=== PATIENT | female | born 1975 | race Caucasian/White ===

== ENCOUNTER 2017-01-06 08:16 | Emergency (ER) | payer MEDICAID ==
[~2017-01-06] VITALS: Ht 160 cm; Wt 71.0 kg
[~2017-01-06 08:16] MED LIST: ALPR1TAB3 PO; BACT800T5 PO; PERC5TAB12 PO; Z.0.BCPILL PO
[2017-01-06 08:19] VITALS: BP 109/62; PULSE 75; RESP 16; TEMP 98.1; O2SAT 99
[2017-01-06] MEDS ORDERED: REQU5TAB PO (08:34)
[2017-01-06] MEDS ORDERED: OMEP40CA2 PO (08:34)
[2017-01-06] MEDS ORDERED: ALPR1TAB3 PO (08:34)
--- NOTE | 2017-01-06 08:57 | PD ---
HPI Chief Complaint: ENT Complaint Time Seen by Provider: 08:50 Travel History International Travel<30 days: No Contact w/Intl Traveler<30days: No Traveled to known affect area: No History of Present Illness HPI This is a 41 year old female who presents to the emergency department with swollen throat for one day, constant, moderate severity, feeling like it is hard to swallow with no associated shortness of breath. She denies any pain. Pt. reports she used an e-cigarette last night which is the only new exposure she can think of. She quit smoking one week ago. Pt. denies cough, nausea, vomiting, or fever. PFSH Past Medical History Narrative Medical anxiety gerd restless legs Anxiety: Yes Diminished Hearing: No Immunizations Current: No ?: Not LMP: 1 WEEK AGO : 7 Para: 4 Miscarriage: 2 : 1 Ovarian Cysts: Yes Dilation and Curettage (D&C): Yes Past Surgical History Section: No Social History Alcohol Use: No Tobacco Use: Yes (stopped month ago) Substance Use: No Allergies-Medications (Allergen,Severity, Reaction): Coded Allergies: No Known Allergies (Verified Adverse Reaction, Unknown, 01/06/17) Reported Meds & Prescriptions Reported Meds & Active Scripts Active Reported Requip (Ropinirole) 5 Mg Tab 5 Mg PO HS Omeprazole 40 Mg Cap 40 Mg PO DAILY Alprazolam 1 Mg Tab 1 Mg PO TID PRN Review of Systems Except as stated in HPI: all other systems reviewed are Neg Physical Exam Narrative GENERAL:Well appearing, no acute distress SKIN: Focused skin assessment warm and dry. HEAD: Atraumatic. Normocephalic. EYES: Pupils equal and round. No injection or drainage. ENT: Moist mucous membranes NECK: Trachea midline. CARDIOVASCULAR: Regular rate and rhythm. No murmur appreciated. RESPIRATORY: Clear to auscultation. Breath sounds equal bilaterally. GASTROINTESTINAL: Abdomen soft, non-tender, nondistended. MUSCULOSKELETAL: No obvious deformities. NEUROLOGICAL: Awake and alert. No obvious cranial nerve deficits. Moving all extremities. PSYCHIATRIC: Appropriate mood and affect; insight and judgment normal. Data Data Last Documented VS Vital Signs Date Time Temp Pulse Resp B/P (MAP) Pulse Ox O2 Delivery O2 Flow Rate FiO2 01/06/17 11:03 64 18 81/56 (64) 100 Room Air 01/06/17 08:19 98.1 Orders Orders Ecg Monitoring (01/06/17 09:10) Iv Access Insert/Monitor (01/06/17 09:10) Oximetry (01/06/17 09:10) Diphenhydramine Inj (Benadryl Inj) (01/06/17 09:15) Methylprednisolone So Succ Inj (Solumedr (01/06/17 09:15) Famotidine Inj (Pepcid Inj) (01/06/17 09:15) Sodium Chloride 0.9% Flush (Ns Flush) (01/06/17 09:15) Sodium Chlor 0.9% 1000 Ml Inj (Ns 1000 M (01/06/17 09:15) MDM Medical Decision Making Medical Screen Exam Complete: Yes Emergency Medical Condition: Yes Interpretation(s) Afebrile, no tachycardia, normotensive Differential Diagnosis Acute allergic reaction, anaphylaxis, angioedema, strep pharyngitis, viral pharyngitis Narrative Course This is a 41-year-old female who presents to the emergency department with swelling in her posterior pharynx following using any cigarette last evening. She has edema of the uvula and the posterior pharynx is erythematous. I suspect she's having allergic reaction. She was given Benadryl, steroids and IV fluids and she says she feels much better. She has no other symptoms to suggest anaphylaxis. Patient will be discharged home with prednisone and Benadryl. Diagnosis Primary Impression: Acute allergic reaction Qualified Codes: T78.40XA - Allergy, unspecified, initial encounter Additional Instructions: If you develop swelling of the throat or coughing a lot, wheezing or trouble breathing, throwing up or having diarrhea, feeling dizzy or passing out, or spreading of your rash return to the emergency room immediately as you may be having a life threatening allergic reaction. Complete your course of steroids and take benadryl every 4 hours for the next 48 hours and then as needed for itching or other symptoms. Med/Other Pt SpecificInfo: Prescription(s) given Scripts Diphenhydramine (Diphenhydramine) 25 Mg Cap 25 MG PO Q6H Y for ALLERGIES, #14 CAP 0 Refills Prov: Trupti Tenorio MD 01/06/17 Prednisone (Prednisone) 20 Mg Tab 40 MG PO DAILY, #10 TAB 0 Refills Take 40 mg (2 tablets) daily for 5 days Prov: Trupti Tenorio MD 01/06/17 Disposition: 01 DISCHARGE HOME Condition: Stable Trupti Tenorio MD Jan 06, 2017 08:57
[2017-01-06] MEDS ORDERED: FAMOTIDINE 20 MG/2 ML VIAL IV PUSH ONE (09:15)
[2017-01-06] MEDS ORDERED: diphenhydrAMINE HCL 50 MG/ML VIAL IVP ONE (09:15)
[2017-01-06] MEDS ORDERED: SODIUM CHLOR 0.9% 1000 ML INJ 1,000 ML IV ONE (09:15)
[2017-01-06] MEDS ORDERED: methylPREDNISolone SOD SUCC 125 MG/2 ML VIAL IV PUSH ONE (09:15)
[2017-01-06] MEDS ORDERED: SODIUM CHLORIDE 0.9% FLUSH 10 ML FLUSH IV FLUSH PRN (09:15)
[2017-01-06 09:29] VITALS: O2SAT 95
[2017-01-06 11:03] VITALS: BP 81/56; PULSE 64; RESP 18; O2SAT 100
[2017-01-06] MEDS ORDERED: PRED20 PO (11:29)
[2017-01-06] MEDS ORDERED: DIPH25CA PO (11:29)
[2017-01-06 12:03] VITALS: BP 105/65
== END 2017-01-06 12:13 | disposition home or self-care (01) ==
LOC: PHED 08:16
DX: T78.40XA Allergy, unspecified, initial encounter (principal); Z87.891 Personal history of nicotine dependence
CPT/HCPCS: 96361; 96374; 96375; 99284; J1200; J2930; J7030